=== PATIENT | female | born 1965 | race Caucasian/White ===

== ENCOUNTER → 2021-02-09 | Outpatient (CLI) | payer BC | LOC: KOH-I 13:39 | DX: R10.30 Lower abdominal pain, unspecified (principal); R10.2 Pelvic and perineal pain | CPT/HCPCS: 74176 ==

== ENCOUNTER → 2021-04-16 | Outpatient (CLI) | payer BC | LOC: EXRD 12:37 | DX: M81.0 Age-related osteoporosis without current pathological fracture (principal); M85.88 Other specified disorders of bone density and structure, other site | CPT/HCPCS: 77080 ==